=== PATIENT | male | born 1950 | race Two or more races ===

== ENCOUNTER 2025-09-02 06:19 | Day surgery (SDC) | payer OTHER ==
[~2025-09-02] VITALS: Ht 182.9 cm; Wt 95.3 kg
[~2025-09-02 06:19] MED LIST: ASPI81CH59 PO; ATOR20TA PO; BICA50TA41 PO; CLOP75TA28 PO; FINA5TAB4 PO; GABA-1250 PO; HYDR1TAB97 PO; LANS30CA57 PO; METO-289 PO; VALS320T PO; ceFAZolin 2 GM/D5W50ml 50 ML IV ONE
[2025-09-02] MEDS ORDERED: VANCOMYCIN HCL 1000 MG VL ONE (06:25)
[2025-09-02] MEDS ORDERED: MORPHINE SULF PF 5 MG/10 ML VIAL ONE ×2 (06:28→07:49)
[2025-09-02] MEDS ORDERED: CELECOXIB 100 MG CAP ONE (06:45)
[2025-09-02] MEDS ORDERED: CELECOXIB 100 MG CAP PO ONE (06:45)
[2025-09-02] MEDS ORDERED: ACETAMINOPHEN IV 1000 MG/100ML (10MG/ML) IV ONE (06:45)
[2025-09-02] MEDS ORDERED: GABAPENTIN 300 MG CAP PO ONE (06:45)
[2025-09-02] MEDS ORDERED: GABAPENTIN 300 MG CAP ONE (06:46)
[2025-09-02] MEDS ORDERED: ACETAMINOPHEN IV 100 ML IV ONE (06:47)
[2025-09-02] MEDS ORDERED: KETOROLAC TROMETH 30 MG/ML 1ML VIAL ONE (06:58)
[2025-09-02] MEDS ORDERED: ONDANSETRON HCL 4 MG/2 ML VIAL ONE (06:58)
[2025-09-02] MEDS ORDERED: LIDOCAINE 1% INJ PF 5ML AMP ONE (06:58)
[2025-09-02] MEDS ORDERED: fentaNYL CITRATE 100 MCG/2 ML VL ONE (06:59)
[2025-09-02] MEDS ORDERED: KETAMINE 50mg/ML 1ml syringe ONE (06:59)
[2025-09-02] MEDS ORDERED: GLYCOPYRROLATE 0.2 MG/ML 1ML VIAL ONE (06:59)
[2025-09-02] MEDS ORDERED: PROPOFOL 10 MG/ML 20 ML IV ONE ×2 (06:59)
[2025-09-02] MEDS: BUPIVACAINE HCL 0.25% P/F 10 ML VIAL ONE ×2 (07:28→08:03)
[2025-09-02] MEDS: LIDOCAINE W/ EPINEPHRINE 2% INJ 20ML VIAL ONE ×2 (07:28→08:03)
[2025-09-02 08:21] VITALS: PULSE 78; RESP 17; TEMP 97.5; O2SAT 96
[2025-09-02] MEDS ORDERED: FLUMAZENIL 0.1 MG/ML INJ 10ML MDV IV PRN (08:30)
[2025-09-02] MEDS ORDERED: hydrALAZINE HCL 20 MG/ML VL IV PRN (08:30)
[2025-09-02] MEDS ORDERED: fentaNYL CITRATE 100 MCG/2 ML VL IV PRN (08:30)
[2025-09-02] MEDS ORDERED: ONDANSETRON HCL 4 MG/2 ML VIAL IV PRN (08:30)
[2025-09-02] MEDS ORDERED: HYDROmorphone HCL 2 MG/ML VL/or syr IV PRN (08:30)
[2025-09-02] MEDS ORDERED: NALOXONE HCL 0.4 MG/ML VIAL IV PRN (08:30)
[2025-09-02 09:06] VITALS: BP 158/88; PULSE 71; RESP 16; O2SAT 96
--- NOTE | 2025-09-02 11:20 | DVH ---
C-ARM FLUOROSCOPY: PROCEDURE: INTRACEPT LSPINE NERVE ABLATION FLUOROSCOPY TIME: 80 sec DAP: 69 mgy FINDINGS: Spot intraoperative C arm radiographs demonstrating INTRACEPT LSPINE NERVE ABLATION. IMPRESSION: Please refer to surgical report for detailed findings.
--- NOTE | 2025-09-02 11:20 | DVH ---
C-ARM FLUOROSCOPY: PROCEDURE: INTRACEPT LSPINE NERVE ABLATION FLUOROSCOPY TIME: 80 sec DAP: 69 mgy FINDINGS: Spot intraoperative C arm radiographs demonstrating INTRACEPT LSPINE NERVE ABLATION. IMPRESSION: Please refer to surgical report for detailed findings.
== END 2025-09-02 09:16 | disposition home or self-care (01) ==
LOC: SUR 06:19
PROVIDERS: ATTEND Anesthesiology Pain Medicine
DX: M54.51 Vertebrogenic low back pain (principal); Z79.82 Long term (current) use of aspirin; Z79.899 Other long term (current) drug therapy; Z85.46 Personal history of malignant neoplasm of prostate; Z98.890 Other specified postprocedural states
CPT/HCPCS: 64628; 64629; 72110; C1889; J0690; J1100; J1885; J2270; J2405; J2704; J3490; 76000; J0131